=== PATIENT | female | born 1955 | race Caucasian/White ===

== ENCOUNTER 2018-04-25 07:31 | Outpatient (CLI) | payer BC ==
[2018-04-25 10:00] LABS: Estimated GFR-MDRD - POC Greater than 90
[2018-04-25] MEDS ORDERED: Iopamidol 370 76% 100 ML VIAL ONE (10:33)
--- NOTE | 2018-04-25 11:41 | CT ---
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 COMPARISON: None available for review. FINDINGS: The lungs are without abnormal pulmonary nodule. No pneumothorax. No effusion. Old left lateral sixth and seventh rib fractures. No acute displaced rib fracture. The sternum and manubrium are intact. The clavicles are intact. The shoulders are intact. Mild narrowing of the pubic symphysis. There is very faint focal lucency within the iliac wings and iliac body, as well as the ischium. There is also some fine lucent foci throughout the thoracic and lumbar spine, which may reflect demineralization or early metastatic foci. These small foci are not completely lucent; therefore, demineralization is felt to be slightly favored. No mediastinal adenopathy. The aortic contour is normal. There is malignant perihepatic ascites, as well as moderate malignant ascites within the pelvis. The re is peritoneal studding of masses throughout the cul-de-sac. There are soft tissue masses along th e right inguinal area, extending from the external iliac lymph umesh chain through the superficial an d deep umesh chain, extending to the skin surface. This conglomeration of masses measures approximat bobby 5.2 x 2.3 x 7 cm. This is likely palpable. Malignant fluid extends throughout the small bowel mesentery. There is abnormal studding of the omen ashwini. Approximately 50% of the peritoneal lining is involved with malignancy. No hydronephrosis. The spleen is unremarkable. The pancreas is unremarkable. No bowel obstruction. Hepatic metastatic disease is present, involving segment 8. There are separate foci of enhancement, which demonstrate different enhancing patterns. There is a hyperenhancing mass identified at segment 8, measuring approximately 11 mm. There is also a hypodense focus with scalloped margins in segment 8,measuring 3.1 x 4.6 x 3.8 cm, which may reflect an essentially necrotic malignant process, less li bebeto hemangioma. Aortic contour is normal. Mildly distended gonadal vessels. The psoas musculature is not involved. The gluteus musculature is not involved. The rectus and oblique musculature is not definitively invo lved. IMPRESSION: 1. Extensive metastatic disease below the diaphragm. Approximately 50% of the peritoneal lining is covered with tumor with extensive peritoneal studding and near complete replacement of the omentum wi th tumor. There is also large volume right external iliac adenopathy with a conglomerate of superfic ial and deep inguinal lymph nodes extending to the skin surface, which is likely palpable over the ri ght anterior thigh. 2. There is also hepatic metastatic disease. No evidence of obstructive uropathy. No hydronephrosi s. No evidence of bowel obstruction. 3. Extensive small subtle lucencies throughout the skeleton may reflect demineralization. These shahrzad encies are not conglomerate, and there does appear to be faint medullary bone within them, which favo rs demineralization versus metastatic disease. POS: [facility]
== END 2018-04-25 07:32 | disposition home or self-care (01) ==
LOC: CT 07:31
PROVIDERS: ATTEND Internal Medicine Hematology & Oncology
DX: C55 Malignant neoplasm of uterus, part unspecified (principal); C56.9 Malignant neoplasm of unspecified ovary; C49.3 Malignant neoplasm of connective and soft tissue of thorax; C22.8 Malignant neoplasm of liver, primary, unspecified as to type
CPT/HCPCS: 71260; 74177; 82565